=== PATIENT | female | born 2000 | race Caucasian/White ===

== ENCOUNTER 2025-04-14 09:38 | Outpatient (CLI) | payer OTHER, SELFPAY | END 2025-04-14 09:39 | disposition home or self-care (01) | LOC: LAB 09:43 | PROVIDERS: Family Provider Nurse Practitioner Family; PCP Nurse Practitioner Family; Visit Provider Emergency Medicine | DX: Z02.1 Encounter for pre-employment examination (principal) | CPT/HCPCS: 36415; 86480 ==

== ENCOUNTER → 2025-08-01 13:33 | Outpatient (BNVA) | payer BC, SELFPAY | PROVIDERS: PCP Registered Nurse; Visit Provider Nurse Practitioner Family | DX: S63.501A Unspecified sprain of right wrist, initial encounter (principal); X58.XXXA Exposure to other specified factors, initial encounter | CPT/HCPCS: 73110 ==